=== PATIENT | male | born 1960 | race African-American/Black ===

== ENCOUNTER 2016-09-12 15:27 | Emergency (ER) | payer OTHER ==
[~2016-09-12] VITALS: Ht 182.9 cm; Wt 120.5 kg
[~2016-09-12 15:27] MED LIST: AMOXICILLIN 50500 MG PO; ATIVAN0.5 MG PO; HCTZ12.5TAB PO; INDAPAMIDE2.5 MG PO; LORTAB 5/500 501 TAB PO; MULTIPLE VITAMI1 CAP PO; NO HOME MEDICATIONS; NORCO 325 MG-51 TAB PO; PEN-VEE K500 MG PO; PRINIVIL2.5 MG PO; TENORMIN 2525 MG/TAB PO; ULTRAM 50MG TAB50 MG PO; VERAPAMIL 440 MG/TAB PO; VIT D; VITAMIN D1000 IU PO; XANAX0.5 MG PO; ZANTAC 150MG T150 MG PO; ZITHROMAX Z PA250 MG PO
[2016-09-12 15:30] VITALS: TEMP 98.3
[2016-09-12] MEDS ORDERED: PRILOSEC 20MG20 MG PO (15:33)
[2016-09-12] MEDS ORDERED: HCTZ 25MG TAB25 MG PO (15:34)
[2016-09-12] MEDS ORDERED: TENORMIN 2525 MG/TAB PO (15:34)
[2016-09-12] MEDS ORDERED: PRINIVIL20 MG PO (15:35)
[2016-09-12 16:11] LABS: BASO % 0.4 % (0.0-2.0); EOS % 0.8 % (0-4.0); GRAN # 2.7 (1.4-6.5); GRAN % 51.4 % (42.2-75.2); HEMATOCRIT 46.6 % (42.0-52.0); HEMOGLOBIN 16.5 g/dl (13.5-18.0); LYMPH # 2.2 (1.2-3.4); LYMPH % 40.8 % (20.0-51.0); MEAN CELL VOLUME 85 fl (80.0-100.0); MEAN CORPUSCULAR HEMOGLOBIN 30 pg (27.0-31.0); MEAN CORPUSCULAR HGB CONC 35 g/dl (33.0-37.0); MONO # 0.4 (0.1-0.6); MONO % 6.6 % (1.7-9.3); PLATELET COUNT 177 K/mm3 (130-400); RED BLOOD COUNT 5.49 M/mm3 (4.20-5.60); REDCELL DISTRIBUTION WIDTH-CV 12.4 % (11.5-14.5); WHITE BLOOD COUNT 5.3 K/mm3 (4.8-10.8)
[2016-09-12 16:17] LABS: PH 5 (5-8); SQUAMOUS EPITHELIAL None Seen /hpf; URINE APPEARANCE Clear; URINE BACTERIA None Seen /hpf; URINE BILIRUBIN Negative (NEGATIVE); URINE BLOOD Negative (NEGATIVE); URINE COLOR Yellow; URINE GLUCOSE 3+ (NEGATIVE); URINE KETONE Negative (NEGATIVE); URINE RBC 0-2 /hpf; URINE UROBILINOGEN Negative (NEGATIVE); URINE WBC 0-2 /hpf
[2016-09-12 16:37] LABS: ADJUSTED CALCIUM 10.1 mg/dL (8.4-10.2); ALANINE AMINOTRANSFERASE 40 U/L (21-72); ALBUMIN 4.2 gm/dL (3.5-5.0); ALKALINE PHOSPHATASE 152 U/L (50-136); ANION GAP 9 mmol/L (7-16); BILIRUBIN,TOTAL 0.9 mg/dL (0.0-1.0); BLOOD UREA NITROGEN 14 mg/dL (9-20); CALCIUM 10.3 mg/dL (8.4-10.2); CARBON DIOXIDE 27 mmol/L (22-30); CHLORIDE 98 mmol/L (98-107); GLUCOSE 391 mg/dL (74-106); POTASSIUM 3.7 mmol/L (3.4-5.0); SODIUM 134 mmol/L (137-145); TOTAL PROTEIN 8.3 gm/dL (6.4-8.2)
[2016-09-12 16:58] VITALS: BP 141/93; PULSE 73
[2016-09-12] MEDS ORDERED: GLUCOPHAGE500 MG/TAB PO (17:47)
== END 2016-09-12 18:00 | disposition home or self-care (01) ==
LOC: COL.ER 15:27
PROVIDERS: Emergency Medicine
DX: E11.65 Type 2 diabetes mellitus with hyperglycemia (principal); I10 Essential (primary) hypertension
CPT/HCPCS: J1815; J7030

== ENCOUNTER 2017-04-23 09:42 | Day surgery (SDC) | payer OTHER ==
[~2017-04-23 09:42] MED LIST changes: +GLUCOPHAGE500 MG/TAB PO; +HCTZ 25MG TAB25 MG PO; +PRILOSEC 20MG20 MG PO; +PRINIVIL20 MG PO
== END 2017-04-23 10:57 | disposition home or self-care (01) ==
LOC: SDCO 09:42
DX: R22.32 Localized swelling, mass and lump, left upper limb (principal); E11.39 Type 2 diabetes mellitus with other diabetic ophthalmic complication; I10 Essential (primary) hypertension; F17.210 Nicotine dependence, cigarettes, uncomplicated; Z53.8 Procedure and treatment not carried out for other reasons; Z79.84 Long term (current) use of oral hypoglycemic drugs

== ENCOUNTER → 2017-10-20 | Outpatient (CLI) | payer OTHER ==
[~2017-10-20] VITALS: Ht 182.9 cm; Wt 112.5 kg
[~2017-10-20] MED LIST changes: +D3-5050000 IU PO; +DEXILANT30 MG PO; +LEVOXYL0.05 MG PO
[2017-10-20 13:50] VITALS: BP 148/97; PULSE 66
[2017-10-20 14:50] VITALS: BP 170/105; PULSE 65
[2017-10-20 15:05] VITALS: BP 174/98; PULSE 59
== END ==
LOC: COL.RAD 13:17
DX: E04.2 Nontoxic multinodular goiter (principal)
CPT/HCPCS: 13756

== ENCOUNTER → 2018-02-17 | Outpatient (CLI) | payer OTHER | LOC: COL.RAD 09:21 | DX: Z01.812 Encounter for preprocedural laboratory examination (principal); E07.9 Disorder of thyroid, unspecified; E11.9 Type 2 diabetes mellitus without complications | CPT/HCPCS: A9516 ==

== ENCOUNTER 2019-05-10 18:33 | Emergency (ER) | payer OTHER ==
[~2019-05-10] VITALS: Ht 182.9 cm; Wt 111.4 kg
[2019-05-10 18:44] VITALS: BP 160/75; TEMP 97.9
[2019-05-10] MEDS ORDERED: AMOXICILLIN 8751 TAB PO ×3 (20:17→20:24)
[2019-05-10 20:32] VITALS: PULSE 72
== END 2019-05-10 20:34 | disposition home or self-care (01) ==
LOC: COL.ER 18:33
DX: L05.91 Pilonidal cyst without abscess (principal); E11.9 Type 2 diabetes mellitus without complications

== ENCOUNTER 2020-04-08 22:49 | Emergency (ER) | payer OTHER ==
[~2020-04-08] VITALS: Ht 182.9 cm; Wt 111.4 kg
[~2020-04-08 22:49] MED LIST changes: +AMOXICILLIN 8751 TAB PO
[2020-04-08 22:52] VITALS: BP 138/95; TEMP 98.1
[2020-04-08] MEDS ORDERED: BACTRIM DS 8001 TAB PO (23:25)
[2020-04-08 23:45] VITALS: PULSE 96
== END 2020-04-08 23:47 | disposition home or self-care (01) ==
LOC: COL.ER 22:49
DX: L05.01 Pilonidal cyst with abscess (principal); I10 Essential (primary) hypertension; E03.9 Hypothyroidism, unspecified; F17.210 Nicotine dependence, cigarettes, uncomplicated; Z79.890 Hormone replacement therapy

== ENCOUNTER 2020-05-07 13:13 | Emergency (ER) | payer OTHER ==
[~2020-05-07] VITALS: Ht 182.9 cm; Wt 113.6 kg
[~2020-05-07 13:13] MED LIST changes: +BACTRIM DS 8001 TAB PO
[2020-05-07 13:28] VITALS: BP 142/85; TEMP 97.4
[2020-05-07 15:27] VITALS: PULSE 65
== END 2020-05-07 15:27 | disposition home or self-care (01) ==
LOC: COL.ER 13:13
DX: L05.01 Pilonidal cyst with abscess (principal); I10 Essential (primary) hypertension; K21.9 Gastro-esophageal reflux disease without esophagitis; F17.200 Nicotine dependence, unspecified, uncomplicated

== ENCOUNTER 2020-07-01 10:00 | Emergency (ER) | payer OTHER ==
[~2020-07-01] VITALS: Ht 182.9 cm; Wt 112.7 kg
[2020-07-01 10:07] VITALS: TEMP 97.5
[2020-07-01] MEDS ORDERED: GLUCOPHAGE500 MG/TAB PO (10:26)
[2020-07-01 11:18] LABS: BASO % 0.5 % (0.0-2.0); EOS # 0.1 (0.0-0.7); EOS % 1.2 % (0-4.0); GRAN # 1.8 (1.4-6.5); GRAN % 44.2 % (42.2-75.2); HEMATOCRIT 50.8 % (42.0-52.0); HEMOGLOBIN 17.2 g/dl (13.5-18.0); LYMPH # 1.8 (1.2-3.4); LYMPH % 44.1 % (20.0-51.0); MEAN CELL VOLUME 92 fl (80.0-100.0); MEAN CORPUSCULAR HEMOGLOBIN 31 pg (27.0-31.0); MEAN CORPUSCULAR HGB CONC 34 g/dl (33.0-37.0); MEAN PLATELET VOLUME 9.4 fl (7.4-10.4); MONO # 0.4 (0.1-0.6); MONO % 9.8 % (1.7-9.3); PLATELET COUNT 194 K/mm3 (130-400); RED BLOOD COUNT 5.52 M/mm3 (4.20-5.60); REDCELL DISTRIBUTION WIDTH-CV 13.2 % (11.5-14.5)
[2020-07-01 11:24] LABS: ALBUMIN 4.5 gm/dL (3.5-5.0); BILIRUBIN,TOTAL 0.6 mg/dL (0.0-1.0); CALCIUM 9.7 mg/dL (8.4-10.2); CREATININE, serum 0.73 (0.66-1.25); POTASSIUM 3.8 mmol/L (3.4-5.0); TOTAL PROTEIN 8.4 gm/dL (6.4-8.2)
[2020-07-01 14:54] VITALS: BP 144/84; PULSE 51
== END 2020-07-01 14:54 | disposition home or self-care (01) ==
LOC: COL.ER 10:00
PROVIDERS: Nurse Practitioner
DX: E04.9 Nontoxic goiter, unspecified (principal); E11.9 Type 2 diabetes mellitus without complications; I10 Essential (primary) hypertension; F17.210 Nicotine dependence, cigarettes, uncomplicated; Z79.84 Long term (current) use of oral hypoglycemic drugs
CPT/HCPCS: Q9967

== ENCOUNTER 2021-11-23 13:04 | Emergency (ER) | payer OTHER ==
[~2021-11-23] VITALS: Ht 182.9 cm; Wt 109.5 kg
[2021-11-23 13:44] VITALS: TEMP 98.3
[2021-11-23 15:57] VITALS: BP 163/100; PULSE 71
[2021-11-24] MEDS ORDERED: FLEXERIL 1010 MG/TAB PO (14:58)
== END 2021-11-23 15:57 | disposition home or self-care (01) ==
LOC: COL.ER 13:04
DX: S09.90XA Unspecified injury of head, initial encounter (principal); F17.200 Nicotine dependence, unspecified, uncomplicated; V89.2XXA Person injured in unspecified motor-vehicle accident, traffic, initial encounter

== ENCOUNTER 2021-11-24 12:54 | Emergency (ER) | payer OTHER ==
[~2021-11-24] VITALS: Ht 182.9 cm; Wt 109.5 kg
[2021-11-24 13:01] VITALS: TEMP 97.8
[2021-11-24] MEDS ORDERED: FLEXERIL 1010 MG/TAB PO (14:58)
[2021-11-24 15:07] VITALS: BP 173/93; PULSE 72
== END 2021-11-24 15:07 | disposition home or self-care (01) ==
LOC: COL.ER 12:54
DX: S06.0X9A Concussion with loss of consciousness of unspecified duration, initial encounter (principal); M54.2 Cervicalgia; F17.210 Nicotine dependence, cigarettes, uncomplicated; V89.2XXA Person injured in unspecified motor-vehicle accident, traffic, initial encounter; Y92.410 Unspecified street and highway as the place of occurrence of the external cause
CPT/HCPCS: Q9967

== ENCOUNTER 2022-05-02 06:27 | Day surgery (SDC) | payer OTHER ==
[~2022-05-02] VITALS: Ht 182.9 cm; Wt 107.3 kg
[~2022-05-02 06:27] MED LIST changes: +FLEXERIL 1010 MG/TAB PO
[2022-05-02 06:57] VITALS: BP 159/93; PULSE 81; TEMP 96.5
[2022-05-02 08:00] VITALS: BP 114/80; PULSE 73
--- NOTE | 2022-05-02 08:00 | NUR ---
PATIENT RETURNS TO [facility] PER CART AND TRANSFERS FROM CART TO RECLINER WITH TWO PERSON ASSIST. IV FLUIDS INFUSING. AWAKE AND ALERT. DENIES ABDOMINAL PAIN OR NAUSEA. REQUESTS COFFEE TO DRINK. CALL LIGHT IN REACH.
[2022-05-02 08:15] VITALS: BP 139/82; PULSE 64
--- NOTE | 2022-05-02 08:15 | NUR ---
SIPPING ON COFFEE. OFFERED SNACK. STATES HE WISHES TO EAT AT HOME. LEFT MESSAGE FOR RIDE THAT PATIENT IS READY FOR DISCHARGE.
[2022-05-02 08:30] VITALS: BP 155/91; PULSE 71
--- NOTE | 2022-05-02 08:30 | NUR ---
IV DISCONTINUED AND SITE IS FREE OF REDNESS. CONTINUES TO OFFER NO COMPLAINTS.
--- NOTE | 2022-05-02 08:45 | NUR ---
PATIENT DISMISSAL INSTRUCTIONS GIVEN AND VOICES UNDERSTANDING OF THESE. PATIENT HAS CALLED [facility] TO TAKE HOME. DOES NOT WANT TO WAIT ON RIDE. IV DISCONTINUED AND PATIENT IS DRESSED. TAKEN TO THE FRONT DOOR PER WHEELCHAIR AND ASSISTED INTO VEHICLE WITH INSTRUCTIONS IN HAND.
== END 2022-05-02 08:45 | disposition home or self-care (01) ==
LOC: SDCO 06:27
DX: R19.7 Diarrhea, unspecified (principal); Z80.0 Family history of malignant neoplasm of digestive organs; E11.9 Type 2 diabetes mellitus without complications; K21.9 Gastro-esophageal reflux disease without esophagitis; I10 Essential (primary) hypertension; Z79.84 Long term (current) use of oral hypoglycemic drugs
CPT/HCPCS: J2704; J7030

== ENCOUNTER 2024-01-03 17:06 | Emergency (ER) | payer OTHER ==
[~2024-01-03] VITALS: Ht 182.9 cm; Wt 113.6 kg
[2024-01-03 17:20] VITALS: TEMP 98
[2024-01-03 18:07] VITALS: BP 190/84; PULSE 76
== END 2024-01-03 18:09 | disposition home or self-care (01) ==
LOC: COL.ER 17:06
DX: S05.01XA Injury of conjunctiva and corneal abrasion without foreign body, right eye, initial encounter (principal); F17.210 Nicotine dependence, cigarettes, uncomplicated; X58.XXXA Exposure to other specified factors, initial encounter